=== PATIENT | male | born 1965 | race Caucasian/White ===

== ENCOUNTER 2024-04-14 06:14 | Day surgery (SDC) | payer OTHER ==
[2024-04-13 12:29] VITALS: BMI 43.8
[2024-04-14] MEDS ORDERED: PROPOFOL 20 ML ONE ×2 (07:03→07:38)
[2024-04-14] MEDS ORDERED: fentaNYL 50 mcg/mL 1 mL Vial ONE (07:04)
[2024-04-14] MEDS ORDERED: Lidocaine 1% PF 5 ML VIAL ONE (07:44)
== END 2024-04-14 08:38 | disposition home or self-care (01) ==
LOC: SDC 06:14
PROVIDERS: ATTEND Internal Medicine Gastroenterology
DX: K29.50 Unspecified chronic gastritis without bleeding (principal); K31.89 Other diseases of stomach and duodenum; K80.20 Calculus of gallbladder without cholecystitis without obstruction; E66.01 Morbid (severe) obesity due to excess calories; Z98.890 Other specified postprocedural states; Z79.899 Other long term (current) drug therapy
CPT/HCPCS: 88305; 88342; 93005; 93010; J2704; J3010